=== PATIENT | male | born 1970 | race Caucasian/White ===

== ENCOUNTER 2018-07-07 08:47 | Observation (INO) ==
--- NOTE | 2018-07-05 07:55 | Anesthesiology Consultation ---
Date of Service July 05, 2018 Assessment & Plan (1) Encounter for pre-operative examination: Chart Review Chart Review: Acceptable Risk for Surgery and Patient NOT seen in Pre Admission Testing Consults Requested none History Surgery Operation Date: 07/07/18 10:50 Proposed Procedures p L4-L5 Laminectomy with Coflex - Naren Kohler DO Height/Weight Height: 5 ft 8 in Weight: 104.326 kg Allergies Allergy/AdvReac Type Severity Reaction Status Date / Time No Known Allergies Allergy Verified 06/20/18 10:44 Medications Home Medications Medication Instructions Recorded Confirmed Last Taken atorvastatin [Lipitor] 10 mg PO PM 06/20/18 06/20/18 Unknown levothyroxine [Synthroid] 50 mcg PO QPM 06/20/18 06/20/18 Unknown venlafaxine [Effexor XR] 75 mg PO QPM 06/20/18 06/20/18 Unknown Past Medical History Medical History Degenerative disc disease Depression Hyperlipidemia Hypothyroidism Irregular heart beat [employer] CHECKED RAMEZ? 2019 Past Surgical History Surgical History History of arthroscopy LEFT KNEE History of colonoscopy History of herniorrhaphy History of tooth extraction Nausea and vomiting after administration of anesthetic agent Social History Smoking Status: Current some day smoker tobacco type: cigars Smoking cigarettes per day: CIGAR SMOKING OCCASIONALLY WHEN OUT WITH FRIENDS (LAST TIME 2017) Do You Dip or Chew Tobacco: No Hx Alcohol Use: Yes Alcohol type: beer alcohol intake frequency: a few times a month Hx Substance Use: No substance use type: does not use Exercise / Class Metabolic Activity II 4-5 Yardwork/Stairs/Walk up hill Testing Laboratory Results Laboratory Tests 06/15/18 09:15 WBC 6.25 Hgb 16.2 Plt Count 208
--- NOTE | 2018-07-06 11:36 | History and Physical Report ---
DATE OF ADMISSION: 07/07/2018 CHIEF COMPLAINT: Back pain, lower extremity difficulty, foraminal stenosis, paresthesias, numbness and tingling, failure of all conservative modalities. PAST MEDICAL HISTORY: Positive for thyroid disease, high cholesterol. No hypertension, carcinoma, kidney disease. PAST SURGICAL HISTORY: Includes knee surgery and hemorrhoid surgery. ALLERGIES: Negative. FAMILY HISTORY: Heart disease, diabetes. SOCIAL HISTORY: He is , rarely drinks. No tobacco. REVIEW OF SYSTEMS: Twelve systems review is negative for fevers, sweats, chills. Ear, nose and throat negative. No chest pain, palpitations. No asthma, wheezing, shortness of breath. No nausea, vomiting. No urgency, frequency. He has muscle pain, stiffness and gait walking inability. MEDICATIONS: Crestor and Synthroid. PHYSICAL EXAMINATION: GENERAL: He is 5 feet 8 inches. He is 230. He is in distress. VITAL SIGNS: Blood pressure 130/80, pulse 80, respirations 16. HEENT: Seems to be normal. CARDIAC: Normal S1, S2. No S3. LUNGS: Clear to auscultation. No rales, rhonchi, wheezing. ABDOMEN: Soft, nontender. IMAGES: Demonstrate significant stenosis, lumbar spine L4-L5. IMPRESSION: Foraminal stenosis and spinal stenosis, lumbar spine. DISPOSITION: Includes a laminectomy, lumbar spine with Coflex tomorrow, [facility].
[~2018-07-07 08:47] MED LIST: CEFAZOLIN 2000MG 2,000 MG/15 ML SYR IV SCH; LR 15ML/HR IV SCH; LR 60ML/HR IV SCH; SODIUM CHLORIDE 0.9% 1,000 ML IV SCH
[2018-07-07] MEDS ORDERED: VANCOMYCIN HCL 1000MG/20ML VIAL ONE (10:07)
[2018-07-07] MEDS ORDERED: THROMBIN FOR SOLN 20000 UNIT KIT ONE (10:07)
[2018-07-07] MEDS ORDERED: GELATIN SPONGE SZ 100 ONE (10:07)
[2018-07-07] MEDS ORDERED: BACITRACIN INJ 50,000 UNIT VIAL ONE (10:08)
[2018-07-07] MEDS ORDERED: BUPIVACAINE/EPINEPHRINE 0.5% MPF 1:200,000 30 ML VIAL ONE (10:08)
[2018-07-07] MEDS ORDERED: fentaNYL citrate 100 MCG/2 ML VIAL IV PRN (10:12)
[2018-07-07] MEDS ORDERED: PROMETHAZINE HCL 12.5 MG in SODIUM CHLORIDE 0.9% 50 ML IV PRN (10:12)
[2018-07-07] MEDS ORDERED: ATROPINE SULFATE 0.1 MG/ML 10ML SYR IV PRN (10:12)
[2018-07-07] MEDS ORDERED: HYDROmorphone INJ 1 MG/ML SYRINGE IV PRN ×2 (10:12→13:29)
[2018-07-07] MEDS ORDERED: ONDANSETRON INJ 2 MG/ML 2 ML VIAL IV PRN ×2 (10:12→13:29)
[2018-07-07] MEDS ORDERED: ePHEDrine sulfate 50 MG/ML AMP IV PRN (10:12)
[2018-07-07] MEDS ORDERED: ONDANSETRON INJ 2 MG/ML 2 ML VIAL ONE (10:16)
[2018-07-07] MEDS ORDERED: MIDAZOLAM HCL 1 MG/ML 2ML VIAL ONE (10:16)
[2018-07-07] MEDS ORDERED: fentaNYL citrate 100 MCG/2 ML VIAL ONE (10:16)
[2018-07-07] MEDS ORDERED: DEXAMETHASONE SOD INJ 4 MG/ML VIAL ONE (10:16)
[2018-07-07] MEDS ORDERED: PROPOFOL IV EMULSION 10 MG/ML 20 ML VIAL IV ONE (10:16)
[2018-07-07] MEDS ORDERED: LIDOCAINE HCL 2% 2 ML VIAL/AMP(20MG/ML) INFIL ONE (10:16)
[2018-07-07] MEDS ORDERED: HYDROmorphone INJ 2 MG/ML SYR/VIAL ONE (10:17)
[2018-07-07] MEDS ORDERED: ROCURONIUM BROMIDE 10 MG/ML 5 ML VIAL ONE ×3 (10:22→11:20)
--- NOTE | 2018-07-07 10:27 | History & Physical Bridge Note ---
Date of Service July 07, 2018 History & Physical Bridge Note I have examined the patient, reviewed the History & Physical and in the interval since the performance of the History & Physical I have noted the following changes of clinical significance: no changes noted
--- NOTE | 2018-07-07 11:52 | Post Operative Brief Note ---
Immediate Post Op Note v1 Date of Surgery July 07, 2018 Pre & Post Diagnosis Operation Date: 07/07/18 10:40 Pre-Op Diagnosis: LUMBAR SPINAL STENOSIS L4-L5 Post-Op Diagnosis: LUMBAR SPINAL STENOSIS L4-L5 Procedure Operation Date: 07/07/18 10:40 Actual Procedures p L4-L5 Laminectomy with Coflex(Not Applicable) - Naren Kohler DO Surgeon Naren Kohler DO Director Of Reimbursement edu Estimated Blood Loss 50 Findings Consistent with Post-Op Diagnosis Drains Hemovac Drain
--- NOTE | 2018-07-07 11:55 | Fluoroscopy Report ---
LUMBAR SPINE, INTRAOPERATIVE FLUOROSCOPY HISTORY: L4-5 laminectomy with Coflex placement. FLUOROSCOPY TIME: 5 seconds. FINDINGS: Intraoperative fluoroscopy was provided for the lumbar spine. Single fluoroscopic spot imag e of the lower lumbar spine demonstrates placement of an L4-5 Coflex device. This appears in good pos ition. IMPRESSION: Fluoroscopy provided for a L4-5 Coflex device. Electronically signed by: Juan Pablo Singh M.D. 07/07/2018 11:54 AM
[2018-07-07] MEDS ORDERED: GLYCOPYRROLATE 0.2 MG/ML VIAL ONE (11:59)
--- NOTE | 2018-07-07 12:44 | Anesthesiology Progress Note ---
Date of Service July 07, 2018 Anesthesia Post Procedure Vital Signs Vital Signs: Temp Pulse Resp BP Pulse Ox 07/07/18 12:08 36.1 C L 77 14 147/90 H 96 07/07/18 09:14 36.4 C L 81 20 128/81 99 Pain Intensity Back: Pain Intensity: 0 Notes Mental Status: alert / awake / arousable and participated in evaluation Patient Amnestic to Procedure: Yes Nausea / Vomiting: adequately controlled Pain: adequately controlled Airway Patency, RR, SpO2: stable & adequate BP & HR: stable & adequate Hydration State: stable & adequate Anesthetic Complications: no major complications apparent and Pt Satisfied with anesthetic care
[2018-07-07] MEDS ORDERED: ACETAMINOPHEN 1,000 MG/100 ML VIAL IV PRN (13:29)
[2018-07-07] MEDS ORDERED: LACTATED RINGER'S 1,000 ML IV SCH (13:29)
[2018-07-07] MEDS ORDERED: MAGNESIUM HYDROXIDE SUSP 30 ML UDC PO PRN (13:29)
[2018-07-07] MEDS ORDERED: HYDROmorphone INJ 0.5 MG/0.5 ML SYR IV PRN (13:29)
[2018-07-07] MEDS ORDERED: OXYCODONE HCL IR 5 MG TAB (IMMEDIATE RELEASE) PO PRN (13:29)
[2018-07-07] MEDS ORDERED: LORazepam 1 MG/2 ML VIAL IV PRN (13:29)
[2018-07-07] MEDS: OXYCODONE HCL IR 5 MG TAB (IMMEDIATE RELEASE) PO PRN (14:28)
[2018-07-07] MEDS: LEVOTHYROXINE SODIUM 50 MCG TABLET PO SCH (15:36)
[2018-07-07] MEDS: CEFAZOLIN 2000MG 2,000 MG/15 ML SYR IV SCH (18:18)
[2018-07-07] MEDS: DOCUSATE SODIUM 100 MG CAP PO SCH (20:10)
[2018-07-07] MEDS ORDERED: VENLAFAXINE HCL XR 75 MG CAPXR PO SCH (21:00)
[2018-07-08] MEDS: OXYCODONE HCL IR 5 MG TAB (IMMEDIATE RELEASE) PO PRN ×3 (01:31→10:03)
[2018-07-08] MEDS: CEFAZOLIN 2000MG 2,000 MG/15 ML SYR IV SCH ×2 (01:33→09:05)
[2018-07-08] MEDS: LEVOTHYROXINE SODIUM 50 MCG TABLET PO SCH (05:41)
--- NOTE | 2018-07-08 07:37 | Anesthesiology Progress Note ---
Date of Service July 08, 2018 Anesthesia Post Procedure Vital Signs Vital Signs: Temp Pulse Pulse Resp BP Pulse Ox 07/08/18 07:33 37.1 C 76 18 121/88 98 07/08/18 03:14 36.7 C 83 16 95/61 L 96 07/07/18 22:59 37.2 C 70 16 118/72 96 07/07/18 16:30 36.6 C 72 16 109/83 97 07/07/18 15:15 36.5 C 57 L 16 105/65 99 07/07/18 14:20 49 L 15 114/77 100 07/07/18 13:47 36.4 C L 83 16 122/80 98 07/07/18 13:20 36.4 C L 51 L 16 130/90 94 07/07/18 12:55 36.5 C 80 15 128/84 100 07/07/18 12:45 70 16 123/70 98 07/07/18 12:35 72 17 121/81 99 07/07/18 12:25 89 16 142/70 H 99 07/07/18 12:15 70 12 134/84 100 07/07/18 12:08 36.1 C L 77 14 147/90 H 96 07/07/18 09:14 36.4 C L 81 20 128/81 99 Pain Intensity Back: Pain Intensity: 4 Notes Mental Status: alert / awake / arousable and participated in evaluation Nausea / Vomiting: adequately controlled Pain: adequately controlled Airway Patency, RR, SpO2: stable & adequate BP & HR: stable & adequate Hydration State: stable & adequate
[2018-07-08] MEDS: DOCUSATE SODIUM 100 MG CAP PO SCH (07:49)
[2018-07-08] MEDS ORDERED: METOPROLOL SUCC 25MG EXT REL TAB PO SCH (09:00)
--- NOTE | 2018-07-08 10:49 | Discharge Summary ---
He is alert, oriented this morning. Minimal complaints of pain. Up, ambulatory, taking p.o. No complications. He had an uneventful 20-hour stay. ASSESSMENT: Status post lumbar spine laminectomy with Coflex spacer. PLAN: Includes discharge home this morning. Prescriptions on his chart. Instructions, precautions provided. He needs no devices such as a walker or a cane. Will see him back in the office in 10 days.
--- NOTE | 2018-07-08 11:01 | Operative Report ---
DATE OF OPERATION: 07/07/2018 PREOPERATIVE DIAGNOSES: Spinal stenosis lumbar spine, slight instability lumbar spine. POSTOPERATIVE DIAGNOSES: Spinal stenosis lumbar spine, slight instability lumbar spine. PROCEDURE: Included: 1. A lumbar spine decompression laminotomy, foraminotomy, partial facetectomy, L4-L5 lumbar spine. 2. Coflex interspinous spacer. SURGEON: Naren Kohler MD. BARLEY STEEPER: Orion Caicedo PA-C. COMPLICATIONS: Zero. BLOOD LOSS: Less than 50. DESCRIPTION OF PROCEDURE: The patient was taken to the Operating Room and general intubated anesthetic provided. The patient is placed prone, scrubbed, prepped and draped sterile. We had a skin incision, fascial incision. We really got down to the 4-5 interspace. It was marked. Cross table lateral radiograph. I meticulously dissected free the nerve roots at 4 and 5 bilaterally. There was a bilateral procedure getting pressure off the nerve root 4 and 5. I was able to spare all the interspinous structures. Inserted a Coflex device #12, fit perfectly, stabilized. We irrigated and closed in layers over vancomycin powder and over a drain with 1 Vicryl, 2-0 and staple gun and a sterile dressing applied. The patient extubated to PACU stable. I attest to the content of the Intraoperative Record and any orders documented therein. Any exception s are noted below.
[2018-07-09] MEDS ORDERED: BISACODYL 5 MG TABEC PO PRN (06:00)
== END 2018-07-08 10:19 | disposition home or self-care (01) ==
LOC: ASU 08:47 → 3E 08:47